=== PATIENT | male | born 1970 | race Caucasian/White ===

== ENCOUNTER → 2022-09-21 10:45 | Outpatient (CLI) | payer BC, SELFPAY ==
--- NOTE | ~2022-09-21 | XR_ITS ---
XR lumbar spine 2-3V DATE: 09/21/2022 11:01 INDICATION: Low back pain with bilateral leg pain TECHNIQUE: AP, lateral, coned lateral lumbosacral views COMPARISON: None FINDINGS: There is mild lumbar dextroscoliosis. There is mild multi-level degenerative disc disease including mild spurring of the lower thoracic and lumbar spine. No fracture or bone destruction. The lumbar pedicles are intact. The sacroiliac joints are normal. IMPRESSION: Mild dextroscoliosis Mild multilevel degenerative disc disease Reviewed, dictated and finalized at location B.
== END ==
PROVIDERS: PCP Internal Medicine; Visit Provider Clinical Nurse Specialist
DX: M54.50 Low back pain, unspecified (principal); M41.86 Other forms of scoliosis, lumbar region; M51.36 Other intervertebral disc degeneration, lumbar region
CPT/HCPCS: 72100

== ENCOUNTER 2022-09-27 10:27 | Outpatient (CLI) | payer BC, SELFPAY ==
[2022-09-27 10:38] LABS: Kit Draw Collected
== END 2022-09-27 10:28 | disposition home or self-care (01) ==
LOC: ANHGOSHLAB 10:30
PROVIDERS: PCP Internal Medicine; Visit Provider Clinical Nurse Specialist
DX: Z12.5 Encounter for screening for malignant neoplasm of prostate (principal); Z13.228 Encounter for screening for other metabolic disorders; Z13.220 Encounter for screening for lipoid disorders
CPT/HCPCS: 36415

== ENCOUNTER 2025-02-10 13:49 | Outpatient (CLI) | payer BC, SELFPAY ==
--- NOTE | ~2025-02-10 | MR_ITS ---
EXAMINATION: MR lumbar spine wo con DATE: 02/10/2025 14:19 INDICATION: Dorsalgia, unspecified. TECHNIQUE: Magnetic resonance imaging (MRI) of the lumbar spine was performed without intravenous contrast. Sequences included sagittal T2-weighted FSE, sagittal T2-weighted FS FSE, sagittal T1-weighted FSE, and axial T2-weighted FSE. COMPARISON: Lumbar spine radiographs 09/21/2022 FINDINGS: Bone alignment is normal. There is mild chronic anterior wedging of T12 vertebral body. There is mildly decreased disc height at L2-L3 and L3-L4 and moderately decreased disc height at L4-L5. The distal spinal cord signal intensity is normal. The conus medullaris is at T12-L1. The following disc levels are specifically discussed: L1-L2: The disc does not extend beyond the endplate margin. There is severe bilateral facet joint osteoarthritis. There is no neural foraminal stenosis. There is no central canal stenosis. L2-L3: The disc is bulging and has an annular fissure. There is severe bilateral facet joint osteoarthritis. There is mild bilateral neural foraminal stenosis. There is mild central canal stenosis. L3-L4: The disc is bulging and has an annular fissure. There is moderate bilateral facet joint osteoarthritis. There is mild bilateral neural foraminal stenosis. There is mild central canal stenosis. L4-L5: The disc is bulging and has an annular fissure. There is severe right and moderate left facet joint osteoarthritis. There is moderate right and mild left neural foraminal stenosis. There is mild central canal stenosis. L5-S1: The disc is bulging and has an annular fissure. There is severe bilateral facet joint osteoarthritis. There is mild right neural foraminal stenosis. There is mild central canal stenosis. IMPRESSION: 1. Moderate lumbar spondylosis. Reviewed, dictated and finalized at location E.
== END 2025-02-10 13:50 | disposition home or self-care (01) ==
LOC: GOSHIMG 13:49
PROVIDERS: PCP Clinical Nurse Specialist; Visit Provider Clinical Nurse Specialist
DX: M47.896 Other spondylosis, lumbar region (principal)
CPT/HCPCS: 72148